=== PATIENT | female | born 1970 | race Caucasian/White ===

== ENCOUNTER 2019-10-13 12:31 | Emergency (ER) | payer OTHER ==
[~2019-10-13] VITALS: Ht 157.5 cm; Wt 69.4 kg
[~2019-10-13 12:31] MED LIST: ECO81 PO; METFORMIN HYD1000 M1 PO; ZOC10 PO
[2019-10-13 12:48] VITALS: Ht 157.5 cm; Wt 69.4 kg
[2019-10-13 14:17] LABS: BASOPHIL % 0.2 % (0-2); PLATELET COUNT 279 x10^3mcL (130-400); RED CELL DISTRIBUTION WIDTH 12.3 % (11.5-14.5)
[2019-10-13 14:50] LABS: CALCIUM 9.6 mg/dL (8.5-10.1); CARBON DIOXIDE 23.2 mmol/L (21-32); CHLORIDE SERUM 101 mmol/L (98-107); CREATININE SERUM 0.8 mg/dL (0.6-1.0); GFR1 > 60 mL/min; GLUCOSE SERUM 251 mg/dL (74-106); SODIUM SERUM 138 mmol/L (136-145)
[2019-10-13 14:54] LABS: ALBUMIN 4.2 g/dL (3.4-5.0); ALKALINE PHOSPHATASE 102 U/L (46-116); ALT/SGPT 35 U/L (14-59); AST/SGOT 18 U/L (15-37); BILIRUBIN TOTAL 0.3 mg/dL (0.20-1.00); LIPASE 123 IU/L (73-393); TOTAL PROTEIN, SERUM 7.7 g/dL (6.4-8.2)
[2019-10-13 16:03] VITALS: BP 105/66
== END 2019-10-13 16:03 | disposition home or self-care (01) ==
LOC: ED 12:31
PROVIDERS: Emergency Medicine
DX: K52.9 Noninfective gastroenteritis and colitis, unspecified (principal); K57.92 Diverticulitis of intestine, part unspecified, without perforation or abscess without bleeding; K80.20 Calculus of gallbladder without cholecystitis without obstruction; E11.9 Type 2 diabetes mellitus without complications
CPT/HCPCS: J2270; J2405